=== PATIENT | female | born 1970 | race Caucasian/White ===

== ENCOUNTER 2017-04-08 23:44 | Inpatient (IN) | payer OTHER ==
[2017-04-09] MEDS ORDERED: EFFER-K 20 MEQ20 ME1 PO (01:53)
[2017-04-09] MEDS ORDERED: LANTUS100 UNITS/ SC (01:55)
[2017-04-09] MEDS ORDERED: NEURONTIN300 M1 PO (01:55)
[2017-04-09] MEDS ORDERED: SYNTHROID100 MC1 PO (01:55)
[2017-04-09] MEDS ORDERED: NOVOLOG100 UNITS/ SC (01:57)
[2017-04-09] MEDS ORDERED: OXYCONTIN40 M2 PO (01:58)
[2017-04-09] MEDS ORDERED: OXYCODONE HCL10 M2 PO (01:58)
[2017-04-09] MEDS ORDERED: PAXIL20 M1 PO (01:59)
[2017-04-09] MEDS ORDERED: PLAQUENIL200 M1 PO (02:06)
[2017-04-09] MEDS ORDERED: PREDNISONE10 M1 PO (02:07)
[2017-04-09 02:15] LABS: EOS % 0.2 % (0-7); HCT-HEMATOCRIT 24.8 % (34.0-49.0); HGB-HEMOGLOBIN 8.1 gm/dl (12.0-15.5); IMMATURE GRANULOCYTES ABSOLUTE 0.09 tho/cmm (0-0.03); IMMATURE GRANULOCYTES PERCENT 0.7 % (0-0.3); LYMPH % 11.2 % (20-45); LYMPH ABSOLUTE COUNT 1.5 tho/cmm (0.8-4.5); MCHC MEAN CORPUSCULAR HGB CONC 32.7 % (32.0-36.0); MCV (MEAN CELL VOLUME) 88.9 fl (82.0-96.0); MEAN PLATELET VOLUME 8.1 cmc (9.4-12.4); MONOCYTE ABSOLUTE COUNT 1.7 tho/cmm (0.0-1.2); NEUTROPHIL ABSOLUTE COUNT 10.5 tho/cmm (1.6-8.0); NEUTROPHIL-AUTOMATED 10.5 tho/cmm (1.6-8.0); NEUTROPHILS % 75.9 % (40-80); PLATELET COUNT 281 tho/cmm (150-450); RED BLOOD COUNT 2.79 mil/cmm (4.00-5.20); RED CELL DISTRIBUTION WIDTH 16.2 % (12.4-16.4); WHITE BLOOD COUNT 13.8 tho/cmm (4.0-10.0)
[2017-04-09 02:20] LABS: PROTHROMBIN TIME 11.2 SECONDS (9.0-13.6)
[2017-04-09 02:32] LABS: ALB/GLOB RATIO 0.7 (0.8-2.0); ALBUMIN 2.2 g/dl (3.5-5.0); ALKALINE PHOSPHATASE 166 U/L (33-138); ALT/SGPT 25 U/L (12-78); ANION GAP 8 mmol/L (0-20); AST/SGOT 37 U/L (10-40); BILIRUBIN,TOTAL 0.4 mg/dl (0-1.5); BLOOD UREA NITROGEN 6 mg/dl (6-24); CALCIUM 7.6 mg/dl (8.5-10.5); CARBON DIOXIDE-VENOUS 27 mmol/L (22-32); CHLORIDE 107 mmol/l (96-110); CREATININE 1.01 mg/dl (0.50-1.10); POTASSIUM 4.4 mmol/L (3.7-5.1); SODIUM 138 mmol/L (135-145); eGFR VALUE FOR BLACK 78 mL/Min
[2017-04-09 02:41] LABS: GLUCOSE 24 mg/dL (70-110)
[2017-04-09 02:50] LABS: PREALBUMIN 10.5 mg/dl (20.0-40.0)
--- NOTE | 2017-04-09 21:36 | NUR ---
ON THE [id number] SHIFT THIS PT HAD TWO HYPOGLYCEMIC EPISODES. ONE AT 0800 WERE HER BLOOD GLUCOSE WAS 37. TREATED WITH A AMPOF DEXTROSE AND RECHECKED IN 15 MINUTES AT 105. THE SECOND AT 1000 WITH A BLOOD GLUCOSE OF 49 THAT WAS TREATED WITH A AMP OF DEXTROSE AND THEN RECHECKED IN 15 MINUTES AT 102.
[2017-04-10 05:29] LABS: BASO % 0.3 % (0-2); EOS % 2.1 % (0-7); EOSINOPHIL ABSOLUTE COUNT 0.2 tho/cmm (0.0-0.7); HCT-HEMATOCRIT 25.6 % (34.0-49.0); HGB-HEMOGLOBIN 8.2 gm/dl (12.0-15.5); IMMATURE GRANULOCYTES PERCENT 0.9 % (0-0.3); LYMPH % 17.5 % (20-45); LYMPH ABSOLUTE COUNT 1.9 tho/cmm (0.8-4.5); MCH (MEAN CORPUSCULAR HGB) 28.6 pg (28.0-32.0); MCV (MEAN CELL VOLUME) 89.2 fl (82.0-96.0); MEAN PLATELET VOLUME 8.3 cmc (9.4-12.4); MONO % 18.7 % (0-12); MONOCYTE ABSOLUTE COUNT 2.1 tho/cmm (0.0-1.2); NEUTROPHIL ABSOLUTE COUNT 6.6 tho/cmm (1.6-8.0); NEUTROPHIL-AUTOMATED 6.6 tho/cmm (1.6-8.0); NEUTROPHILS % 60.5 % (40-80); PLATELET COUNT 351 tho/cmm (150-450); RED BLOOD COUNT 2.87 mil/cmm (4.00-5.20); RED CELL DISTRIBUTION WIDTH 16.9 % (12.4-16.4)
[2017-04-10 05:52] LABS: ANION GAP 12 mmol/L (0-20); BLOOD UREA NITROGEN 4 mg/dl (6-24); CALCIUM 7.7 mg/dl (8.5-10.5); CARBON DIOXIDE-VENOUS 25 mmol/L (22-32); CHLORIDE 108 mmol/l (96-110); CREATINE PHOSPHOKINASE (CPK) 52 U/L (21-215); CREATININE 0.89 mg/dl (0.50-1.10); SODIUM 141 mmol/L (135-145); eGFR VALUE FOR BLACK >90 mL/Min
[2017-04-10 06:06] LABS: GLUCOSE 82 mg/dL (70-110)
[2017-04-12 06:08] LABS: BASO % 0.1 % (0-2); EOS % 0.1 % (0-7); HCT-HEMATOCRIT 25.2 % (34.0-49.0); HGB-HEMOGLOBIN 7.9 gm/dl (12.0-15.5); IMMATURE GRANULOCYTES ABSOLUTE 0.04 tho/cmm (0-0.03); IMMATURE GRANULOCYTES PERCENT 0.4 % (0-0.3); LYMPH ABSOLUTE COUNT 1.5 tho/cmm (0.8-4.5); MCH (MEAN CORPUSCULAR HGB) 28.2 pg (28.0-32.0); MCHC MEAN CORPUSCULAR HGB CONC 31.3 % (32.0-36.0); MEAN PLATELET VOLUME 8.4 cmc (9.4-12.4); MONOCYTE ABSOLUTE COUNT 1.7 tho/cmm (0.0-1.2); NEUTROPHIL ABSOLUTE COUNT 7.8 tho/cmm (1.6-8.0); NEUTROPHIL-AUTOMATED 7.8 tho/cmm (1.6-8.0); NEUTROPHILS % 70.4 % (40-80); PLATELET COUNT 423 tho/cmm (150-450); RED CELL DISTRIBUTION WIDTH 16.5 % (12.4-16.4)
[2017-04-12 06:11] LABS: ANION GAP 12 mmol/L (0-20); BLOOD UREA NITROGEN 11 mg/dl (6-24); CALCIUM 8.2 mg/dl (8.5-10.5); CARBON DIOXIDE-VENOUS 32 mmol/L (22-32); CHLORIDE 101 mmol/l (96-110); CREATININE 1.03 mg/dl (0.50-1.10); GLUCOSE 97 mg/dL (70-110); POTASSIUM 4.6 mmol/L (3.7-5.1); SODIUM 140 mmol/L (135-145); eGFR VALUE FOR BLACK 76 mL/Min
[2017-04-12 06:27] LABS: IRON 17 ug/dl (37-170); IRON BINDING CAPACITY 224 ug/dl (250-450)
[2017-04-12] MEDS ORDERED: POTASSIUM99 M4 PO (15:50)
[2017-04-13 06:38] LABS: ANION GAP 10 mmol/L (0-20); BLOOD UREA NITROGEN 13 mg/dl (6-24); CARBON DIOXIDE-VENOUS 34 mmol/L (22-32); CHLORIDE 99 mmol/l (96-110); GLUCOSE 110 mg/dL (70-110); POTASSIUM 4.1 mmol/L (3.7-5.1); SODIUM 139 mmol/L (135-145); eGFR VALUE FOR BLACK 79 mL/Min
[2017-04-14 09:25] LABS: ANION GAP 13 mmol/L (0-20); BLOOD UREA NITROGEN 13 mg/dl (6-24); CARBON DIOXIDE-VENOUS 32 mmol/L (22-32); CHLORIDE 102 mmol/l (96-110); CREATININE 0.92 mg/dl (0.50-1.10); GLUCOSE 83 mg/dL (70-110); SODIUM 142 mmol/L (135-145); eGFR VALUE FOR BLACK 87 mL/Min
[2017-04-14 09:35] LABS: POTASSIUM 5.3 mmol/L (3.7-5.1)
[2017-04-14] MEDS ORDERED: FEOSOL325 M1 PO (11:27)
[2017-04-14] MEDS ORDERED: METHADONE HCL10 M1 PO (11:28)
[2017-04-14] MEDS ORDERED: LEVEMIR100 UNITS/ SC (11:34)
[2017-04-14] MEDS ORDERED: COLACE100 M1 PO (11:35)
[2017-05-09] MEDS ORDERED: METHADOSE10 MG/1 ML PO (11:28)
== END 2017-04-14 12:00 | DRG 904 ==
LOC: BURN 23:44 → ORW 04-11 12:45 → PACU 04-11 13:53 → BURN 04-11 15:49
PROVIDERS: Family Medicine; Surgery; ADMIT Surgery
PROC: 0HRKXK3 Replacement of Right Lower Leg Skin with Nonautologous Tissue Substitute, Full Thickness, External Approach (ICD-10-PCS; principal; 2017-04-11)
PROC: 0JDN0ZZ Extraction of Right Lower Leg Subcutaneous Tissue and Fascia, Open Approach (ICD-10-PCS; 2017-04-11)
PROC: 30233N1 Transfusion of Nonautologous Red Blood Cells into Peripheral Vein, Percutaneous Approach (ICD-10-PCS; 2017-04-12)
DX: T81.30XA Disruption of wound, unspecified, initial encounter (principal); E11.52 Type 2 diabetes mellitus with diabetic peripheral angiopathy with gangrene; E11.649 Type 2 diabetes mellitus with hypoglycemia without coma; M32.9 Systemic lupus erythematosus, unspecified; E44.1 Mild protein-calorie malnutrition; E87.1 Hypo-osmolality and hyponatremia; M34.9 Systemic sclerosis, unspecified; S81.801A Unspecified open wound, right lower leg, initial encounter; Z79.52 Long term (current) use of systemic steroids; Z91.81 History of falling; E03.9 Hypothyroidism, unspecified; F17.220 Nicotine dependence, chewing tobacco, uncomplicated; Z79.4 Long term (current) use of insulin; G89.29 Other chronic pain; D50.9 Iron deficiency anemia, unspecified; Z68.21 Body mass index [BMI] 21.0-21.9, adult
CPT/HCPCS: J0171; J1170; J1200; J1335; J1720; J1815; J1940; J2250; J2270; J3010; J7030; J7121; J7512; P9016; Q4100

== ENCOUNTER 2017-04-28 18:15 | Inpatient (IN) | payer OTHER ==
[~2017-04-28 18:15] MED LIST: COLACE100 M1 PO; EFFER-K 20 MEQ20 ME1 PO; FEOSOL325 M1 PO; LANTUS100 UNITS/ SC; LEVEMIR100 UNITS/ SC; METHADONE HCL10 M1 PO; NEURONTIN300 M1 PO; NOVOLOG100 UNITS/ SC; OXYCODONE HCL10 M2 PO; OXYCONTIN40 M2 PO; PAXIL20 M1 PO; PLAQUENIL200 M1 PO; POTASSIUM99 M4 PO; PREDNISONE10 M1 PO; SYNTHROID100 MC1 PO
[2017-04-29 05:01] LABS: BLOOD UREA NITROGEN 10 mg/dl (6-24); CALCIUM 7.3 mg/dl (8.5-10.5); CARBON DIOXIDE-VENOUS 22 mmol/L (22-32); CHLORIDE 109 mmol/l (96-110); PREALBUMIN 18.6 mg/dl (20.0-40.0); SODIUM 139 mmol/L (135-145); eGFR VALUE FOR BLACK 79 mL/Min
[2017-04-29 05:11] LABS: ANION GAP 14 mmol/L (0-20); POTASSIUM 5.6 mmol/L (3.7-5.1)
[2017-04-29 05:12] LABS: GLUCOSE 27 mg/dL (70-110)
[2017-04-29 08:01] LABS: BASO % 0.1 % (0-2); EOS % 1.4 % (0-7); EOSINOPHIL ABSOLUTE COUNT 0.2 tho/cmm (0.0-0.7); HCT-HEMATOCRIT 32.5 % (34.0-49.0); HGB-HEMOGLOBIN 10.4 gm/dl (12.0-15.5); IMMATURE GRANULOCYTES ABSOLUTE 0.04 tho/cmm (0-0.03); IMMATURE GRANULOCYTES PERCENT 0.3 % (0-0.3); LYMPH ABSOLUTE COUNT 1.9 tho/cmm (0.8-4.5); MCH (MEAN CORPUSCULAR HGB) 28.8 pg (28.0-32.0); MEAN PLATELET VOLUME 9.1 cmc (9.4-12.4); MONO % 17.6 % (0-12); MONOCYTE ABSOLUTE COUNT 2.5 tho/cmm (0.0-1.2); NEUTROPHIL ABSOLUTE COUNT 9.7 tho/cmm (1.6-8.0); NEUTROPHIL-AUTOMATED 9.7 tho/cmm (1.6-8.0); NEUTROPHILS % 67.6 % (40-80); PLATELET COUNT 415 tho/cmm (150-450); RED BLOOD COUNT 3.61 mil/cmm (4.00-5.20); RED CELL DISTRIBUTION WIDTH 16.9 % (12.4-16.4); WHITE BLOOD COUNT 14.3 tho/cmm (4.0-10.0)
[2017-04-29 08:23] LABS: BLOOD UREA NITROGEN 11 mg/dl (6-24); CARBON DIOXIDE-VENOUS 24 mmol/L (22-32); CHLORIDE 106 mmol/l (96-110); CREATININE 1.12 mg/dl (0.50-1.10); SODIUM 139 mmol/L (135-145); eGFR VALUE FOR BLACK 69 mL/Min
[2017-04-29 08:40] LABS: ANION GAP 14 mmol/L (0-20); POTASSIUM 4.5 mmol/L (3.7-5.1)
[2017-04-29 08:42] LABS: GLUCOSE 34 mg/dL (70-110)
[2017-04-30 12:05] LABS: BASO % 0.1 % (0-2); EOS % 0.6 % (0-7); EOSINOPHIL ABSOLUTE COUNT 0.1 tho/cmm (0.0-0.7); HCT-HEMATOCRIT 29.2 % (34.0-49.0); HGB-HEMOGLOBIN 9.1 gm/dl (12.0-15.5); IMMATURE GRANULOCYTES ABSOLUTE 0.02 tho/cmm (0-0.03); IMMATURE GRANULOCYTES PERCENT 0.2 % (0-0.3); LYMPH % 4.7 % (20-45); LYMPH ABSOLUTE COUNT 0.5 tho/cmm (0.8-4.5); MCH (MEAN CORPUSCULAR HGB) 28.6 pg (28.0-32.0); MCHC MEAN CORPUSCULAR HGB CONC 31.2 % (32.0-36.0); MCV (MEAN CELL VOLUME) 91.8 fl (82.0-96.0); MEAN PLATELET VOLUME 8.9 cmc (9.4-12.4); MONO % 6.9 % (0-12); MONOCYTE ABSOLUTE COUNT 0.7 tho/cmm (0.0-1.2); NEUTROPHIL ABSOLUTE COUNT 8.4 tho/cmm (1.6-8.0); NEUTROPHIL-AUTOMATED 8.4 tho/cmm (1.6-8.0); NEUTROPHILS % 87.5 % (40-80); PLATELET COUNT 295 tho/cmm (150-450); RED BLOOD COUNT 3.18 mil/cmm (4.00-5.20); RED CELL DISTRIBUTION WIDTH 17.2 % (12.4-16.4); WHITE BLOOD COUNT 9.6 tho/cmm (4.0-10.0)
[2017-04-30 12:13] LABS: BLOOD UREA NITROGEN 16 mg/dl (6-24); CALCIUM 7.8 mg/dl (8.5-10.5); CARBON DIOXIDE-VENOUS 23 mmol/L (22-32); CHLORIDE 97 mmol/l (96-110); PHOSPHOROUS 4.6 mg/dl (2.5-4.9); SODIUM 131 mmol/L (135-145)
[2017-04-30 12:17] LABS: ANION GAP 16 mmol/L (0-20); CREATININE 1.42 mg/dl (0.50-1.10); GLUCOSE 303 mg/dL (70-110); MAGNESIUM 1.9 mg/dl (1.8-2.6); POTASSIUM 5.2 mmol/L (3.7-5.1); eGFR VALUE FOR BLACK 52 mL/Min
[2017-05-02 07:08] LABS: BASO % 0.4 % (0-2); BASO ABSOLUTE COUNT 0.1 tho/cmm (0.0-0.2); EOS % 3.3 % (0-7); EOSINOPHIL ABSOLUTE COUNT 0.4 tho/cmm (0.0-0.7); HCT-HEMATOCRIT 32.3 % (34.0-49.0); HGB-HEMOGLOBIN 10.1 gm/dl (12.0-15.5); IMMATURE GRANULOCYTES ABSOLUTE 0.04 tho/cmm (0-0.03); IMMATURE GRANULOCYTES PERCENT 0.3 % (0-0.3); LYMPH ABSOLUTE COUNT 2.1 tho/cmm (0.8-4.5); MCH (MEAN CORPUSCULAR HGB) 28.6 pg (28.0-32.0); MCHC MEAN CORPUSCULAR HGB CONC 31.3 % (32.0-36.0); MCV (MEAN CELL VOLUME) 91.5 fl (82.0-96.0); MONO % 14.9 % (0-12); MONOCYTE ABSOLUTE COUNT 1.8 tho/cmm (0.0-1.2); NEUTROPHIL ABSOLUTE COUNT 7.5 tho/cmm (1.6-8.0); NEUTROPHIL-AUTOMATED 7.5 tho/cmm (1.6-8.0); NEUTROPHILS % 63.1 % (40-80); PLATELET COUNT 284 tho/cmm (150-450); RED BLOOD COUNT 3.53 mil/cmm (4.00-5.20); RED CELL DISTRIBUTION WIDTH 17.5 % (12.4-16.4); WHITE BLOOD COUNT 11.8 tho/cmm (4.0-10.0)
[2017-05-02 07:28] LABS: BLOOD UREA NITROGEN 10 mg/dl (6-24); CALCIUM 7.8 mg/dl (8.5-10.5); CARBON DIOXIDE-VENOUS 21 mmol/L (22-32); CHLORIDE 110 mmol/l (96-110); CREATININE 0.88 mg/dl (0.50-1.10); SODIUM 139 mmol/L (135-145); eGFR VALUE FOR BLACK >90 mL/Min
[2017-05-02 07:29] LABS: ANION GAP 12 mmol/L (0-20)
[2017-05-02 07:30] LABS: GLUCOSE 47 mg/dL (70-110)
[2017-05-04] MEDS ORDERED: ULTRAM50 M1 PO (10:09)
[2017-05-04] MEDS ORDERED: PROPRANOLOL HCL10 M1 PO (10:11)
[2017-05-04] MEDS ORDERED: PERCOCET 5-3251 EACH PO (10:27)
[2017-05-09] MEDS ORDERED: METHADOSE10 MG/1 ML PO (11:28)
== END 2017-05-04 12:06 | DRG 578 ==
LOC: BURN 18:15
PROVIDERS: Anesthesiology; ADMIT Surgery
PROC: 05HC33Z Insertion of Infusion Device into Left Basilic Vein, Percutaneous Approach (ICD-10-PCS; 2017-04-28)
PROC: 0JBN0ZZ Excision of Right Lower Leg Subcutaneous Tissue and Fascia, Open Approach (ICD-10-PCS; principal; 2017-04-29)
PROC: 0HXKXZZ Transfer Right Lower Leg Skin, External Approach (ICD-10-PCS; 2017-04-29)
PROC: 0Y3H0ZZ Control Bleeding in Right Lower Leg, Open Approach (ICD-10-PCS; 2017-04-29)
DX: S81.811A Laceration without foreign body, right lower leg, initial encounter (principal); M32.9 Systemic lupus erythematosus, unspecified; M34.9 Systemic sclerosis, unspecified; E11.9 Type 2 diabetes mellitus without complications; I10 Essential (primary) hypertension; F17.210 Nicotine dependence, cigarettes, uncomplicated; W19.XXXA Unspecified fall, initial encounter
CPT/HCPCS: C1751; J0171; J0360; J1170; J1580; J1650; J1720; J1815; J2060; J2250; J2270; J2543; J3010; J3370; J7030; J7050; J7512